=== PATIENT | female | born 1935 | race Caucasian/White ===

== ENCOUNTER → 2016-11-23 | Outpatient (CLI) | payer MEDICARE, OTHER ==
[~2016-11-23] MED LIST: ASA325 MG PO; ASPIR 8181 MG PO; ATORVASTATIN CA40 MG PO; CRANBERRY200 MG PO; DAILY MULTIPLE1 EAC1 PO; FLONASE 0.05% D16 GM NS; IBUPROFEN200 MG PO; NORCO 5-325 TA1 EACH PO; PROTONIX40 MG PO
== END | disposition home or self-care (01) ==
LOC: RAD.S 11:11
DX: Z12.31 Encounter for screening mammogram for malignant neoplasm of breast (principal); R92.1 Mammographic calcification found on diagnostic imaging of breast

== ENCOUNTER 2017-01-04 04:51 | Observation (INO) | payer MEDICARE, OTHER ==
[~2017-01-04] VITALS: Ht 165.1 cm; Wt 88.0 kg
--- NOTE | 2017-01-04 07:01 | ER ---
ADMIT: 01/04/2017 RM/LOC: ER [facility] MR#: [id number] [address] [address] [address] [id number] Emergency Room Report SEX: F AGE: 81 : 1935 DATE: 01/04/2017 CHIEF COMPLAINT: Chest pain. HISTORY OF PRESENT ILLNESS: The patient is an 81-year-old female, hard of hearing with known gallbladder disease, presents with epigastric abdominal pain radiating to back that awoke her tonight. Denies any fevers, chills, nausea, vomiting, exacerbating or relieving maneuvers. PAST MEDICAL HISTORY: ILLNESSES: GERD, hyperlipidemia, chronic gallbladder disease, chronic sinusitis, hard of hearing. OPERATIONS: Partial hysterectomy, right total knee arthroplasty in July 2016, left tympanoplasty, multiple sinus surgeries, tonsillectomy, PE tubes. ALLERGIES: PENICILLIN. MEDICATIONS: Please see nurse's MAR. SOCIAL HISTORY: Recently . Nonsmoker, nondrinker. No illicit drugs. FAMILY HISTORY: Positive for coronary artery disease in siblings. REVIEW OF SYSTEMS: A 12-point review of systems negative for all other systems, illnesses, or operations except as outlined above. PHYSICAL EXAMINATION: VITAL SIGNS: Temp 99.2, pulse 60, respirations 18, BP 181/63, SaO2 of 97% on room air. GENERAL: Moderate distress, non-diaphoretic without jaundice or icterus. HEENT: Normocephalic. No evidence of epistaxis, rhinorrhea, or otorrhea. NECK: Supple without lymphadenopathy or thyromegaly. CHEST: Clear. Breath sounds equal. HEART: Regular rate and rhythm without murmur, gallop, or edema. ABDOMEN: Soft, tender epigastrium without mass or megaly. Bowel sounds hypoactive. EXTREMITIES: No evidence of Homans sign, synovitis, or dermatitis. NEURO: EOMI. PERRLA. No evidence of drift, dysarthria, or ataxia. Gait normal. MENTAL STATUS: Alert, oriented, and cooperative without delusions, hallucinations, or abnormal thought content. MEDICAL DECISION MAKING: WBC 11.6 with left shift. Lactic 1.5, CRP less than 0.29. Glucose 131, troponin less than 0.015. Lipase 322. UA negative. BNP 36. INR less than 1. The patient was given Zofran, Toradol, Protonix, ADMIT: 01/04/2017 RM/LOC: [facility] MR#: [id number] [address] [address] [address] [place] [address] Emergency Room Report SEX: F AGE: 81 : 1935 Dilaudid with relief of pain. Discussed case with Dr. Begum, who agreed to admit and gave orders to nursing staff. Notified DENISE of admission. DIAGNOSES: Acute on chronic cholecystitis, associated with gallstone. RECOMMENDATION: Admit short-stay surgery for Dr. Begum. ADMISSION/DISCHARGE CONDITION: Stable. Patient is a full code. Deven Combs MD/ diannl JOB #: [id number] CC: Deven Combs MD, Attending Physician Skyla Hazel MD, Family Physician Skyla Hazel MD
[2017-01-06] MEDS ORDERED: PROTONIX40 MG PO (11:33)
[2017-01-06] MEDS ORDERED: ASA325 MG PO (11:33)
[2017-01-06] MEDS ORDERED: ASPIR 8181 MG PO (11:33)
[2017-01-06] MEDS ORDERED: CRANBERRY200 MG PO (11:34)
[2017-01-06] MEDS ORDERED: DAILY MULTIPLE1 EAC1 PO (11:34)
[2017-01-06] MEDS ORDERED: ATORVASTATIN CA40 MG PO (11:34)
[2017-01-06] MEDS ORDERED: IBUPROFEN200 MG PO (11:34)
[2017-01-06] MEDS ORDERED: NORCO 5-325 TA1 EACH PO (11:35)
[2017-01-06] MEDS ORDERED: FLONASE 0.05% D16 GM NS (11:35)
--- NOTE | 2017-01-07 09:48 | OR ---
ADMIT: 01/04/2017 RM/LOC: [facility] MR#: [id number] [address] [address] [address] [place] [id number] Operative/Delivery Room Report SEX: F AGE: 81 : 1935 SURGERY DATE: 01/04/2017 SURGEON: Jermaine Shah MD PREOPERATIVE DIAGNOSIS: Cholelithiasis with cholecystitis. POSTOPERATIVE DIAGNOSIS: Cholelithiasis with cholecystitis. PROCEDURE: Laparoscopic cholecystectomy. SPECIAL AGENT FBI: ENZO Roland, whose assistance was necessary for laparoscopic visualization and tissue retraction. ANESTHESIA: General endotracheal. ESTIMATED BLOOD LOSS: 10 mL. DESCRIPTION OF PROCEDURE: The patient was taken to the operating room and placed supine on the operating room table. General anesthesia was established. The abdomen was prepped and draped in the standard surgical fashion. A 5 mm infraumbilical incision was made in the skin. The fascia was grasped with a Rob clamp, and a Veress needle was advanced into the peritoneal cavity. Carbon dioxide was used to insufflate the abdomen to 15 mmHg pressure. The Veress needle was withdrawn, and a 5-mm Optiview trocar was placed. Laparoscope was advanced and showed intraperitoneal position with no damage to underlying structures. Next, an 11-mm subxiphoid port and two right lateral 5-mm ports were placed under visualization. The gallbladder was acutely inflamed and there were significant adhesions, which were taken down to Calot's triangle. The Calot's triangle was dissected and the cystic duct was skeletonized and the view of safety was obtained. The cystic duct was doubly clipped distally, singly clipped proximally, and divided. The cystic artery was skeletonized, doubly clipped proximally, singly clipped distally, ADMIT: 01/04/2017 RM/LOC: [facility] MR#: [id number] [address] [address] [address] [place] [address] Operative/Delivery Room Report SEX: F AGE: 81 : 1935 and divided. The gallbladder was excised from the gallbladder fossa with Bovie cautery. It was placed in an EndoCatch bag and removed through the subxiphoid port site. The right upper quadrant was irrigated. There was no evidence of bleeding. No evidence of bile leak, and the clips remained intact on the cystic duct and artery. The ports were removed under visualization without evidence of bleeding. The fascial margin at the subxiphoid port site was approximated with 0 Vicryl suture and the suture passer. The abdomen was allowed to deflate. Skin edges were approximated with 4-0 Monocryl in a subcuticular fashion and Dermabond. Local anesthetic was injected at the incisions. Sponge, needle, and instrument counts were correct at the end of the case. The patient tolerated the procedure well and transferred to the recovery area in stable condition. Jermaine Shah MD/ randy JOB #: [id number] CC: Jim Begum, Attending Physician Skyla Hazel, Family Physician
--- NOTE | 2017-01-14 10:08 | HP ---
ADMIT: 01/04/2017 RM/LOC: [facility] MR#: [id number] [id number] [place], [place] [address] [address] [place] [address] History and Physical SEX: F AGE: 81 : 1935 Revision: 01/11/2017 1056 djs DATE OF SERVICE: CHIEF COMPLAINT: Abdominal pain. HISTORY OF PRESENT ILLNESS: Spike is a very pleasant 81-year-old female, who woke up this morning about 1 or 2 a.m. with intense abdominal pain in the epigastric region. She also felt nauseous from this, but denies any emesis. She had 2 large bowel movements this morning, but denies any diarrhea, constipation, dark or bloody stools. She has been told that she has "gallbladder problems" that was said about 25-30 years ago. Because of her symptoms, she was seen in our emergency department, was fully worked up and was shown to have acute cholecystitis. PAST MEDICAL HISTORY: GERD, hypercholesterolemia. PAST SURGICAL HISTORY: 1. Total right knee by Dr. Peña about a year ago. 2. Nasal septoplasty. 3. Colonoscopy. ALLERGIES: CEFOXITIN, AMOXICILLIN. MEDICATIONS: 1. Pantoprazole. 2. Aspirin. 3. Atorvastatin. 4. Calcium. 5. Cranberry. 6. Ibuprofen. 7. Multivitamin. 8. Fluticasone nasal spray. FAMILY HISTORY: Noncontributory. SOCIAL HISTORY: The patient denies any tobacco, alcohol, or illicit drug use. REVIEW OF SYSTEMS: CONSTITUTIONAL: The patient denies any fever, chills, or night sweats. EARS: The patient is hard of hearing, but denies any tinnitus or deformities of the pinna. The rest of comprehensive 10-point review of systems was performed and all other systems are negative. PHYSICAL EXAMINATION: GENERAL: The patient is in no acute distress. She is alert and oriented. HEENT: Head is normocephalic and atraumatic. EOMS are intact. Conjunctivae free of icterus, erythema, or pallor. Pinnae, free of deformities. Nose, midline. No tracheal deviation. ADMIT: 01/04/2017 RM/LOC: [facility] MR#: [id number] [address] [address] [address] [place] [address] History and Physical SEX: F AGE: 81 : 1935 NECK: Supple. SKIN: Negative for jaundice, clubbing, edema, pallor, or cyanosis. LUNGS: Normal respiratory effort. HEART: Distal pulses intact. Regular rate and rhythm. ABDOMEN: Soft, nondistended, tender in epigastric region. Negative Edwards sign. NEURO: Grossly intact. LABORATORY DATA: White blood cell count 11.6. ASSESSMENT: Acute cholecystitis. PLAN: The plan is to have the patient undergo laparoscopic possible open cholecystectomy with possible IOC performed today. We will try to get her done prior to this afternoon, so this might be done with another surgeon, which I discussed with the patient. I discussed the risks, alternatives, benefits, and complications of surgery with the patient, to which she is agreement of this plan, had all her questions answered, would like to proceed. I will make sure if she is on the schedule, and go from there. ENZO Roland / Jermaine Shah MD / randy JOB #: [id number] CC: Jim Begum, Attending Physician Skyla Hazel, Family Physician Revision: 01/11/2017 1056 [place]aura
== END 2017-01-05 09:35 | disposition home or self-care (01) ==
LOC: ER 04:51 → SSS 06:08 → 6PED 11:25
PROVIDERS: ADMIT Surgery
PROC: 0FT44ZZ Resection of Gallbladder, Percutaneous Endoscopic Approach (ICD-10-PCS; principal; 2017-01-04)
DX: K80.12 Calculus of gallbladder with acute and chronic cholecystitis without obstruction (principal); I10 Essential (primary) hypertension; Z79.899 Other long term (current) drug therapy; Z98.890 Other specified postprocedural states; Z88.0 Allergy status to penicillin; Z88.8 Allergy status to other drugs, medicaments and biological substances; Z79.82 Long term (current) use of aspirin